=== PATIENT | female | born 1985 | race Hispanic/Latino ===

== ENCOUNTER 2017-05-21 11:04 | Emergency (ER) | payer OTHER ==
[2017-05-21] MEDS ORDERED: MOTRIN PO ONE (15:55)
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
[2017-05-21 17:31] VITALS: BP 130/78
== END 2017-05-21 17:31 | disposition home or self-care (01) ==
LOC: ED 11:04
DX: M54.6 Pain in thoracic spine (principal); V89.2XXA Person injured in unspecified motor-vehicle accident, traffic, initial encounter; Y93.89 Activity, other specified; Y92.89 Other specified places as the place of occurrence of the external cause; Y99.8 Other external cause status
CPT/HCPCS: 72070; 99283